=== PATIENT | female | born 1995 | race Two or more races ===

== ENCOUNTER 2024-09-14 10:09 | Emergency (ER) | payer OTHER ==
[~2024-09-14] VITALS: Ht 160 cm; Wt 88.0 kg
--- NOTE | 2024-09-14 11:24 | DVH ---
CLINICAL INFORMATION: 29 years old, Female; inverted ankle. r/o fracture. TECHNIQUE: 3 views of the right ankle were obtained. COMPARISON: None FINDINGS: There is an ossific density inferior to the medial malleolus. Talar dome is smooth. No wide riley at the ankle mortise. No significant arthropathy. Adjacent soft tissues are unremarkable. IMPRESSION: 1. Ossific density inferior to the medial malleolus suspicious for avulsion fracture possibly from th e posterior aspect of the medial malleolus.
--- NOTE | 2024-09-14 12:03 | ED.PDOC ---
Musculoskeletal HPI Comments 29-year-old with a history of muscular dystrophy presents for a mechanical fall that occurred 1 hour ago. Patient reports she tripped over her dog and fell on her back. Patient has sustained a hematoma to the occipital lobe and reports twisting her ankle on the down fall pain is located to the medial malleolus in her aggravated with ambulation. The pain is currently 8/10 Still able to bear weight Denies previous surgeries to the ankle Denies redness or swelling around the ankle Denies fever chills night sweats nausea vomiting Chief Complaint: Fall Injury Time Seen by MD: 10:59 Reviewed Notes: Nurses Notes, Medications, Allergies Allergies: Coded Allergies: Penicillins (Verified Allergy, Severe, 09/14/24) Information Source: Patient Mode of Arrival: EMS Family History Family History: Reviewed,noncontributory to illness Social History Smoker: Non-Smoker Alcohol: Denies ETOH Use Drugs: Denies Drug Use All Other Systems: Reviewed and Negative (per hpi) Physical Exam General Appearance: No Apparent Distress, Normal HEENT: Normal ENT Inspection, Pharynx Normal, TMs Normal Neck: Full Range of Motion, Non-Tender, Normal, Normal Inspection Respiratory: Chest Non-Tender, Lungs Clear, No Accessory Muscle Use, No Res piratory Distress, Normal Breath Sounds Cardiovascular: No Edema, No JVD, No Murmur, No Gallop, Normal Peripheral Pulses, Regular Rate/Rhythm Breast Exam: Deferred Gastrointestinal: No Organomegaly, Non Tender, No Pulsatile Mass, Normal Bowel Sounds, Soft Genitalia: Deferred Pelvic: Deferred Rectal: Deferred Extremities: No calf tenderness, Normal capillary refill, Normal inspection, Normal range of motion, Non-tender, No pedal edema Musculoskeletal : Location: Right Extremity Location: Ankle (localized TTP to medial malleolus ) Apperance: Normal Neurologic: Alert, No Motor Deficits, Normal Affect, Normal Mood, No Sensory Deficits Cerebellar Function: Normal Reflexes: Normal Skin: Dry, Normal Color, Warm Lymphatic: No Adenopathy Was a procedure done? Was a procedure done?: No Differential Diagnosis EXT Differential Diagnosis: Fracture, Sprain, Dislocation X-Ray, Labs, Meds, VS Vital Signs Date Time Temp Pulse Resp B/P (MAP) Pulse Ox O2 Delivery O2 Flow Rate FiO2 09/14/24 12:37 98.7 90 20 129/65 (86) 97 98.7 09/14/24 12:37 90 20 97 Room Air 09/14/24 10:14 98.7 90 20 124/65 (72) 97 PATIENT: BRENDA OROSCOT: [id number]: [id number] : 1995 LOC: ER ROOM / BED: / AGE / SEX: 29 / F ADM STATUS: REG ER SERVICE [id number] ORDERING PHYSICIAN: SHERLY NOVAK WORKFORCE SPECIALIST PROCEDURE(s): RANK2 - R ANKLE 2 VIEW XRAY REASON: inverted ankle. r/o fracture ORDER NUMBER(s): [id number], ACCESSION NUMBER(s): [id number] CLINICAL INFORMATION: 29 years old, Female; inverted ankle. r/o fracture. TECHNIQUE: 3 views of the right ankle were obtained. COMPARISON: None FINDINGS: There is an ossific density inferior to the medial malleolus. Talar dome is smooth. No widening at the ankle mortise. No significant arthropathy. Adjacent soft tissues are unremarkable. IMPRESSION: 1. Ossific density inferior to the medial malleolus suspicious for avulsion fracture possibly from the posterior aspect of the medial malleolus. ATED BY: ALEJA NOGUEIRA MD DICTATED DATE/TIME: 09/14/24 112 SIGNED BY: ALEJA NOGUEIRA MD SIGNED DATE/TIME: 09/14/24 112 CC: X-Ray, Labs, Meds, VS Comment Ossific density inferior to the medial malleolus suspicious for avulsion fractu re possibly from the posterior aspect of the medial malleolus. Workup: XR Ankle Findings: Fracture Patient does not currently demonstrate complications of fracture such as compartment syndrome, arterial or nerve injury. Interventions: The fracture has been satisfactorily immobilized, and the patient has been given appropriate analgesia. Disposition: Discharge with strict return precautions and instructions to follow up with primary MD within 24-48 hours for further evaluation including referral to an orthopedist or cardiac surgeon. Patient is stable for discharge at this time. External notes reviewed. Test results and diagnostic imaging interpreted. All diagnostic findings, discharge care, education and instructions provided Follow-up with PCP in 2 to 3 days Patient verbalized understanding and agreed to treatment plan Vital signs stable, afebrile, no acute distress noted Patient ambulatory with strong steady gait Advised to return precautions for any new or worsening symptoms, return to ER immediately for re-evaluation Patient is aware that the purpose of this visit was for an acute medical emergency requiring emergent stabilization. Chronic conditions, including malignancies have not been ruled out. Patient is instructed to follow up with PCP as directed and discharge instructions for continued care and workup. If unable to arrange follow-up, patient is to return to the emergency department for reassessment. Patient (parent or legal guardian if applicable) was given verbal and written discharge instructions and acknowledges understanding. Time of 1ST Reevaluation: 12:00 Reevaluation 1ST: Improved Patient Education/Counseling: Diagnosis, Treatment Family Education/Counseling: Diagnosis, Treatment Departure 1 Departure Time of Disposition: 12:02 Impression: Primary Impression: Fractured medial malleolus Qualified Codes: S82.54XA - Nondisplaced fracture of medial malleolus of right tibia, initial encounter for closed fracture Disposition: 01 HOME / SELF CARE / HOMELESS Condition: Stable Discharged With: Relative, Spouse Critical Care Note Critical Care Time?: No Stability Stability form required: No Heart Score Heart Score: Heart Score Response (Comments) Value History N/A 0 EKG N/A 0 Age N/A 0 Risk Factors N/A 0 Troponin N/A 0 Total 0 SHERLY NOVAK NP Sep 14, 2024 12:03
[2024-09-14] MEDS: HYDROcodone-ACET 5/325MG TAB PO ONE (12:12)
[2024-09-14 12:37] VITALS: BP 129/65; PULSE 90; RESP 20; TEMP 98.7; O2SAT 97
== END 2024-09-14 12:39 | disposition home or self-care (01) ==
LOC: ER 10:09 → EDBD 10:09 → ER 12:36
DX: S82.51XA Displaced fracture of medial malleolus of right tibia, initial encounter for closed fracture (principal); Z88.0 Allergy status to penicillin; W01.0XXA Fall on same level from slipping, tripping and stumbling without subsequent striking against object, initial encounter; Y93.89 Activity, other specified; Y92.89 Other specified places as the place of occurrence of the external cause; Y99.8 Other external cause status
CPT/HCPCS: 29515; 73600